=== PATIENT | male | born 1955 | race Caucasian/White ===

== ENCOUNTER 2018-01-12 | Inpatient (IN) | payer OTHER, BC ==
[~2018-01-12] VITALS: Ht 177.8 cm; Wt 68.6 kg
[2018-01-12 00:15] VITALS: Ht 177.8 cm; Wt 68.6 kg
[2018-01-12 02:49] LABS: CALCIUM 7.6 mg/dL (8.5-10.1); CARBON DIOXIDE 30.2 mmol/L (21-32); CHLORIDE SERUM 101 mmol/L (98-107); CREATININE SERUM 0.7 mg/dL (0.7-1.3); GFR1 > 60 mL/min; GLUCOSE SERUM 104 mg/dL (74-106); MAGNESIUM 1.1 mg/dL (1.8-2.4); POTASSIUM SERUM 3.3 mmol/L (3.5-5.1); SODIUM SERUM 139 mmol/L (136-145)
[2018-01-12 03:22] LABS: PLATELET COUNT 336 x10^3mcL (130-400)
[2018-01-12 03:30] LABS: RED CELL DISTRIBUTION WIDTH 17.8 % (11.5-14.5)
[2018-01-12 03:50] VITALS: BP 111/66
[2018-01-12 04:00] VITALS: BP 111/66
[2018-01-12 04:03] LABS: FREE T4 1.82 ng/dL (0.76-1.46); FREE THYROXINE INDEX 3.1 ug/dL (1.4-4.5); T4(THYROXINE) 7.8 ug/dL (4.7-13.3)
[2018-01-12 04:16] LABS: BAND NEUTROPHIL 21 % (0-10); BASOPHIL 0 % (0-2); MONOCYTE 3 % (0-7); SEGMENTED NEUTROPHILS 72 % (37-75)
[2018-01-12 04:17] LABS: PLATELET MORPHOLOGY LARGE PLATELET SEEN; rbc morphology (normal/abnorm) ABNORMAL (NORMAL); tear drop cell (dacryocyte) 1+
[2018-01-12 04:23] LABS: PHOSPHOROUS 1.7 mg/dL (2.5-4.9)
[2018-01-12 04:25] LABS: CHOLESTEROL/HDL RATIO 7.4
[2018-01-12 04:39] LABS: UA SPECIFIC GRAVITY 1.025 (1.005-1.035); microscopic required? YES; urine erythrocyte 3+ (NEGATIVE)
[2018-01-12 04:43] LABS: T3 TOTAL 0.53 ng/mL
[2018-01-12 04:47] LABS: AMPHETAMINE QUAL UR NONE DETECTED (See below)
[2018-01-12] MEDS ORDERED: LEVOTHYROXINE0.15 M2 PO (05:07)
[2018-01-12] MEDS ORDERED: XAN1 PO (05:07)
[2018-01-12] MEDS ORDERED: KEPPRA500 MG PO (05:07)
[2018-01-12] MEDS ORDERED: DEXAMETHASONE4 MG PO ×2 (05:09→05:10)
[2018-01-12] MEDS ORDERED: OMEPRAZOLE40 M1 PO (05:10)
[2018-01-12] MEDS ORDERED: FENTANYL SL (05:12)
[2018-01-12] MEDS ORDERED: MORPHINE SULFAT60 MG PO (05:13)
[2018-01-12] MEDS ORDERED: MORPHINE SULFAT30 M6 PO (05:14)
[2018-01-12] MEDS ORDERED: PROZAC40 MG PO (05:15)
[2018-01-12] MEDS ORDERED: KLOR-CON M2020 MEQ PO (05:15)
[2018-01-12 09:38] VITALS: BP 126/76
[2018-01-12 13:15] VITALS: BP 123/79
[2018-01-12 20:39] VITALS: BP 126/81
[2018-01-13] VITALS (8 sets, daily range): BP systolic 127–152; BP diastolic 65–92
[2018-01-13 09:53] LABS: CALCIUM 8.2 mg/dL (8.5-10.1); CARBON DIOXIDE 26.5 mmol/L (21-32); CHLORIDE SERUM 101 mmol/L (98-107); CREATININE SERUM 0.6 mg/dL (0.7-1.3); GFR1 > 60 mL/min; GLUCOSE SERUM 79 mg/dL (74-106); POTASSIUM SERUM 3.7 mmol/L (3.5-5.1); SODIUM SERUM 138 mmol/L (136-145)
[2018-01-13 11:00] LABS: PLATELET COUNT 237 x10^3mcL (130-400)
[2018-01-13 11:16] LABS: RED CELL DISTRIBUTION WIDTH 18.3 % (11.5-14.5)
[2018-01-13 13:45] LABS: BAND NEUTROPHIL 11 % (0-10); BASOPHIL 0 % (0-2); MONOCYTE 2 % (0-7); PLATELET MORPHOLOGY PLATELETS NORMAL; SEGMENTED NEUTROPHILS 85 % (37-75); burr cell (echinocyte) 1+; rbc morphology (normal/abnorm) ABNORMAL (NORMAL); target cell (codocyte) 1+; tear drop cell (dacryocyte) 1+
[2018-01-14] VITALS (14 sets, daily range): BP systolic 135–166; BP diastolic 80–102
[2018-01-14 03:05] LABS: PLATELET COUNT 236 x10^3mcL (130-400)
[2018-01-14 03:15] LABS: RED CELL DISTRIBUTION WIDTH 18.3 % (11.5-14.5)
[2018-01-14 03:19] LABS: CALCIUM 8.1 mg/dL (8.5-10.1); CARBON DIOXIDE 25.5 mmol/L (21-32); CHLORIDE SERUM 102 mmol/L (98-107); CREATININE SERUM 0.8 mg/dL (0.7-1.3); GFR1 > 60 mL/min; GLUCOSE SERUM 112 mg/dL (74-106); MAGNESIUM 1.7 mg/dL (1.8-2.4); SODIUM SERUM 140 mmol/L (136-145)
[2018-01-14 03:25] LABS: BAND NEUTROPHIL 3 % (0-10); MONOCYTE 5 % (0-7); SEGMENTED NEUTROPHILS 88 % (37-75)
[2018-01-14 03:26] LABS: PLATELET MORPHOLOGY PLATELETS NORMAL; ovalocyte/elliptocyte 1+; rbc morphology (normal/abnorm) ABNORMAL (NORMAL)
[2018-01-14 03:27] LABS: burr cell (echinocyte) 1+
[2018-01-15] VITALS (17 sets, daily range): BP systolic 95–133; BP diastolic 36–783
[2018-01-15 05:48] LABS: CALCIUM 7.5 mg/dL (8.5-10.1); CARBON DIOXIDE 22.7 mmol/L (21-32); CHLORIDE SERUM 110 mmol/L (98-107); CREATININE SERUM 0.6 mg/dL (0.7-1.3); GFR1 > 60 mL/min; GLUCOSE SERUM 89 mg/dL (74-106); PHOSPHOROUS 2.8 mg/dL (2.5-4.9); POTASSIUM SERUM 3.6 mmol/L (3.5-5.1); SODIUM SERUM 148 mmol/L (136-145)
[2018-01-15 08:11] LABS: PLATELET COUNT 164 x10^3mcL (130-400)
[2018-01-15 09:33] LABS: BAND NEUTROPHIL 4 % (0-10); BASOPHIL 0 % (0-2); MONOCYTE 4 % (0-7); PLATELET MORPHOLOGY PLATELETS NORMAL; SEGMENTED NEUTROPHILS 88 % (37-75); rbc morphology (normal/abnorm) ABNORMAL (NORMAL)
[2018-01-15 09:34] LABS: acanthocyte (spur cell) 1+; burr cell (echinocyte) 1+; ovalocyte/elliptocyte 1+
[2018-01-16] VITALS (11 sets, daily range): BP systolic 97–130; BP diastolic 49–80
[2018-01-16 04:52] LABS: CALCIUM 7.6 mg/dL (8.5-10.1); CARBON DIOXIDE 27.1 mmol/L (21-32); CHLORIDE SERUM 113 mmol/L (98-107); CREATININE SERUM 0.5 mg/dL (0.7-1.3); GFR1 > 60 mL/min; GLUCOSE SERUM 215 mg/dL (74-106); MAGNESIUM 1.7 mg/dL (1.8-2.4); PHOSPHOROUS 1.3 mg/dL (2.5-4.9); SODIUM SERUM 151 mmol/L (136-145)
[2018-01-16 04:55] LABS: POTASSIUM SERUM 2.7 mmol/L (3.5-5.1)
[2018-01-16 05:02] LABS: PLATELET COUNT 124 x10^3mcL (130-400); RED CELL DISTRIBUTION WIDTH 18.7 % (11.5-14.5)
[2018-01-16 05:18] LABS: BAND NEUTROPHIL 1 % (0-10); BASOPHIL 0 % (0-2); MONOCYTE 1 % (0-7); SEGMENTED NEUTROPHILS 96 % (37-75)
[2018-01-16 05:20] LABS: rbc morphology (normal/abnorm) ABNORMAL (NORMAL)
[2018-01-16 05:21] LABS: ovalocyte/elliptocyte 1+
[2018-01-16 05:22] LABS: PLATELET MORPHOLOGY PLATELETS DECREASED
[2018-01-16 10:58] LABS: CALCIUM 7.6 mg/dL (8.5-10.1); CARBON DIOXIDE 28.3 mmol/L (21-32); CHLORIDE SERUM 111 mmol/L (98-107); CREATININE SERUM 0.6 mg/dL (0.7-1.3); GFR1 > 60 mL/min; GLUCOSE SERUM 216 mg/dL (74-106); POTASSIUM SERUM 3.1 mmol/L (3.5-5.1); SODIUM SERUM 147 mmol/L (136-145)
== END 2018-01-16 21:00 | disposition expired | DRG 871 ==
LOC: ED → IC 02:45 → DU 02:45 → IC 01-13 18:25
PROVIDERS: Emergency Medicine; Internal Medicine
PROC: 5A1945Z Respiratory Ventilation, 24-96 Consecutive Hours (ICD-10-PCS; principal; 2018-01-15)
PROC: 0BH17EZ Insertion of Endotracheal Airway into Trachea, Via Natural or Artificial Opening (ICD-10-PCS; 2018-01-15)
DX: A41.9 Sepsis, unspecified organism (principal); N17.0 Acute kidney failure with tubular necrosis; J69.0 Pneumonitis due to inhalation of food and vomit; J96.21 Acute and chronic respiratory failure with hypoxia; R65.21 Severe sepsis with septic shock; D68.69 Other thrombophilia; C79.31 Secondary malignant neoplasm of brain; C78.02 Secondary malignant neoplasm of left lung; C78.7 Secondary malignant neoplasm of liver and intrahepatic bile duct; E11.65 Type 2 diabetes mellitus with hyperglycemia; E87.5 Hyperkalemia; E83.42 Hypomagnesemia; E83.39 Other disorders of phosphorus metabolism; E03.9 Hypothyroidism, unspecified; Z66 Do not resuscitate; Z51.5 Encounter for palliative care; Z92.3 Personal history of irradiation; Z99.81 Dependence on supplemental oxygen; Z68.21 Body mass index [BMI] 21.0-21.9, adult; Z87.891 Personal history of nicotine dependence; Z85.030 Personal history of malignant carcinoid tumor of large intestine
CPT/HCPCS: 36600; 83880; 84439; 85378; A4628; J1100; J1644; J1815; J1885; J1940; J1953; J2060; J2270; J2405; J2543; J2704; J3475; J3480; J3490; J7030; J7620; J8540; Q0092